=== PATIENT | female | born 1950 | race Caucasian/White ===

== ENCOUNTER 2024-04-11 08:30 | Outpatient (AMB) | payer MEDICARE, SELFPAY ==
[2024-04-11 09:12] VITALS: BP 153/80; PULSE 57; RESP 16; TEMP 36.2; O2SAT 96; BMI 33.3
--- NOTE | 2024-04-11 09:12 | RHCORTHONT_ITS ---
Vital signs 04/11/24 09:12 Height 1.52 m Height Method Stated Weight 77.252 kg Weight Measurement Method Standing Scale BMI 33.3 BP 153/80 H Blood Pressure Source Automatic Cuff Blood Pressure Location Right Upper Arm Position Sitting Respiration 16 Pulse 57 L Pulse Source Monitor Temp 97.1 F Temp Source Temporal Artery Scan Pulse Oximetry (%) 96 Oxygen Delivery Method Room Air Med/Allergies Allergies & Medications Allergies Penicillins Allergy (Verified 04/11/24 09:13) Medication Reconciliation diclofenac sodium 1 % topical gel (Aleve (diclofenac)) 2 g topical QID 04/11/24 [History Confirmed 04/11/24] ibuprofen 200 mg tablet (Advil) 200 mg PO Q6H PRN 04/11/24 [History Confirmed 04/11/24] Exam Exam Patient is in no acute distress and is cooperative with the examination today. Breathing is nonlabored. In no respiratory distress. Patient has no paraspinal tenderness. Spinal deformity [cannot] be appreciated. The gait of the patient is [nonantalgic] Bilateral extremities were evaluated and demonstrates sensation intact to light touch. Palpable pedal pulses are present. No significant edema is present. Bilateral knees were examined and the patient has full strength and range of motion.. The left hip was examined. Patient was able to flex to 90 degrees, adduct to 30 degrees, abduct to 40 degrees, internally rotate to 20 degrees, and externally rotate to 20 degrees. Patient has a negative logroll. Stinchfield is negative. The patient is nontender diffusely to touch. The right hip was examined. Patient was able to flex to [90] degrees, adduct to [30] degrees, abduct to [40] degrees, internally rotate to 10 degrees, and externally rotate to [20] degrees. Patient has a positive logroll and positive S tinchfield's An x-ray report says there is severe arthritis. I cannot see the x-rays Assessment and Plan Problem List (1) Arthritis of right hip: Status: Acute Plan: Patient is a 74-year-old female with right hip pain and right hip arthritis. She reports she has left hip pain that is mild. She is using a walker and is hunched over a little bit. I would like to get back x-rays as well as lumbar spine x-rays. I am very confident that the pain is from the hip. We will see her x-rays and go from there. 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 (6137-0123) MA Intake Visit Data Collection New Patient or Established: New Patient (never been to [facility]) Reason for Visit:: RT HIP PAIN Seen by Clinical Staff ONLY (RN/MA): No Quality Assurance Engineer Required: Yes PCP or OBGYN visit in last 3 months: Yes Hx Now: No Do You Feel Safe at Home: Yes Questionairres Past Medical History Past Medical History Have you ever been diagnosed with any of the following: Respiratory Problems Smoking: No Smoking Cessation Counseling: No Smoking Exposure: No Subjective Visit Visit for: new patient and hip Immunization / Flu Flu Vaccine in the Last 12 Months: No Flu Vaccine Exclusion Criteria: Refused by Patient History of Present Illness Chief complaint: RIGHT HIP PAIN Date of injury / onset of symptoms: 3 YEARS Patient is a 74-year-old female with right hip pain has been ongoing for 3 years. She has been using a walker for 1 year. She has tried diclofenac and Advil. The pain is affecting her quality life and happiness. She reports all the pain is in the groin. Personal History Occupation: RETIRED Pain Pain level (0-10): 6 Pain duration: CONSTANT Pain location: inside (medial), outside (lateral), anterior and posterior Pain quality: aching Pain timing: increases with activity Associated signs & symptoms: none Ambulatory data Ambulatory device: walker Walking distance (minutes): 2 Treatments Improvement with NSAIDS: yes Review of Systems Review of Systems: All systems negative unless otherwise noted in HPI.
== END 2024-04-11 09:35 | disposition home or self-care (01) ==
PROVIDERS: PCP Family Medicine; Referring Provider Family Medicine; Supervising Provider Orthopaedic Surgery Adult Reconstructive Orthopaedic Surgery; Visit Provider Orthopaedic Surgery Adult Reconstructive Orthopaedic Surgery
DX: M16.11 Unilateral primary osteoarthritis, right hip (principal); M25.551 Pain in right hip; M25.552 Pain in left hip
CPT/HCPCS: 99203; G0463

== ENCOUNTER → 2024-04-11 | Outpatient (CLI) | payer MEDICARE, MEDICAID, SELFPAY ==
--- NOTE | 2024-04-11 09:55 | XR_ITS ---
Examination: Lumbar spine 3 views Technique one AP lateral coned lateral lower lumbar spine 3 views Exam date and time: April 11, 2024 1040 hours INDICATIONS: Low back pain months FINDINGS: Grade 1 anterolisthesis L4 on L5 Grade 1 probable spondylolisthesis L5 on S1 No lumbar fracture Moderate disc narrowing L4-L5, L5-S1 Mild lumbar spondylosis IMPRESSION: Grade 1 anterolisthesis L4 on L5 Grade 1 probable spondylolisthesis L5 on S1 Moderate degenerative disc disease L4-L5, L5-S1
--- NOTE | 2024-04-11 09:55 | XR_ITS ---
Examination: Bilateral hips, AP pelvis, 5 views Technique: AP, lateral views both hips, AP pelvis, 5 views Exam date and time: April 11, 2024 1016 hours INDICATIONS: Bilateral hip pain months FINDINGS: Advanced right hip osteoarthritis Significant avascular necrosis right femoral head Moderate to advanced narrowing left hip joint Prominent osteopenia No hip or pelvic fracture IMPRESSION: Advanced right hip osteoarthritis Avascular necrosis right femoral head
== END | disposition home or self-care (01) ==
PROVIDERS: PCP Family Medicine; Referring Provider Orthopaedic Surgery Adult Reconstructive Orthopaedic Surgery; Visit Provider Orthopaedic Surgery Adult Reconstructive Orthopaedic Surgery
DX: M16.11 Unilateral primary osteoarthritis, right hip (principal); M87.851 Other osteonecrosis, right femur; M51.369 Other intervertebral disc degeneration, lumbar region without mention of lumbar back pain or lower extremity pain; M51.379 Other intervertebral disc degeneration, lumbosacral region without mention of lumbar back pain or lower extremity pain
CPT/HCPCS: 72100; 73523

== ENCOUNTER 2024-04-18 11:16 | Outpatient (AMB) | payer MEDICARE, SELFPAY ==
--- NOTE | 2024-04-18 11:51 | PD.ORTHCLVIS ---
Vital signs 04/18/24 11:52 Height 1.52 m Height Method Stated Weight 79.067 kg Weight Measurement Method Standing Scale BMI 34.0 BP 133/77 H Blood Pressure Source Automatic Cuff Blood Pressure Location Left Upper Arm Position Sitting Respiration 16 Pulse 60 Pulse Source Monitor Temp 97.3 F Temp Source Temporal Artery Scan Pulse Oximetry (%) 95 Oxygen Delivery Method Room Air Med/Allergies Allergies & Medications Allergies Penicillins Allergy (Verified 04/18/24 11:52) Medication Reconciliation diclofenac sodium 1 % topical gel (Aleve (diclofenac)) 2 g topical QID 04/11/24 [History Confirmed 04/18/24] ibuprofen 200 mg tablet (Advil) 200 mg PO Q6H PRN 04/11/24 [History Confirmed 04/18/24] Exam Exam Patient is in no acute distress and is cooperative with the examination today. Breathing is nonlabored. In no respiratory distress. Patient has no paraspinal tenderness. Spinal deformity [cannot] be appreciated. The gait of the patient is [nonantalgic] Bilateral extremities were evaluated and demonstrates sensation intact to light touch. Palpable pedal pulses are present. No significant edema is present. Bilateral knees were examined and the patient has full strength and range of motion.. The left hip was examined. Patient was able to flex to 90 degrees, adduct to 30 degrees, abduct to 40 degrees, internally rotate to 20 degrees, and externally rotate to 20 degrees. Patient has a negative logroll. Stinchfield is negative. The patient is nontender diffusely to touch. The right hip was examined. Patient was able to flex to [90] degrees, adduct to [30] degrees, abduct to [40] degrees, internally rotate to 10 degrees, and externally rotate to [20] degrees. Patient has a positive logroll and positive Stinchfield's Right hip x-rays demonstrate significant joint space narrowing and obliteration of the right hip. She also has a L5-S1 spondee. Assessment and Plan Problem List (1) Arthritis of right hip: Status: Acute Plan: Patient is a 74-year-old female with right hip pain as well as a L5-S1 spondee. We will start with a cortisone injection of the right hip for both diagnostic and therapeutic purposes. On exam, she feels like the pain is from the hip as she has pain with logroll. I would like to get a cortisone injection to make sure. I will see her back in approximately 4 weeks after cortisone injection of the hip. Advanced Care Planning Discussion Advance care planning discussed with:: patient Office Procedures GNS Level of Care Nursing/Assessment Patient Status: Established Patient Nursing Assessment/Reassesment: Medication Reconciliation, Update PMH in EMR and Vital Signs Coordination of Care: Complex Care and Chronic Disease 1-5, Education Complex Pt/Fam, 1 Ins Authorization and Staff clarify orders Special Needs: Language special needs Established Patient Charge Established Patient Point Assignment: 100 Established Patient Point Charge: EP Level 3 (80-115) MA Intake Visit Data Collection New Patient or Established: Established Patient (seen at [facility] within 3 years) Reason for Visit:: XRAY RESULTS/HIP PAIN Seen by Clinical Staff ONLY (RN/MA): No Partition Notcher Required: Yes PCP or OBGYN visit in last 3 months: Yes Do You Feel Safe at Home: Yes Questionairres Past Medical History Past Medical History Have you ever been diagnosed with any of the following: Respiratory Problems Smoking: No Smoking Cessation Counseling: No Smoking Exposure: No Subjective Visit Visit for: follow up visit and hip Immunization / Flu Flu Vaccine in the Last 12 Months: No Flu Vaccine Exclusion Criteria: Refused by Patient History of Present Illness Chief complaint: XRAY RESULTS/HIP PAIN Pain Pain level (0-10): 7 Pain duration: CONSTANT Pain location: inside (medial) and outside (lateral) Pain quality: aching Pain timing: increases with activity Ambulatory data Ambulatory device: walker Review of Systems Review of Systems: All systems negative unless otherwise noted in HPI.
[2024-04-18 11:52] VITALS: BP 133/77; PULSE 60; RESP 16; TEMP 36.3; O2SAT 95; BMI 34.0
== END 2024-04-18 12:09 | disposition home or self-care (01) ==
PROVIDERS: PCP Family Medicine; Referring Provider Family Medicine; Supervising Provider Orthopaedic Surgery Adult Reconstructive Orthopaedic Surgery; Visit Provider Orthopaedic Surgery Adult Reconstructive Orthopaedic Surgery
DX: M16.11 Unilateral primary osteoarthritis, right hip (principal); M25.551 Pain in right hip
CPT/HCPCS: 99213; G0463

== ENCOUNTER → 2024-05-19 | Outpatient (CLI) | payer MEDICARE, MEDICAID, SELFPAY ==
--- NOTE | 2024-05-19 13:00 | XR_ITS ---
Examination: Steroid injection right hip with imaging guidance Fluoroscopy AP right hip single view INDICATIONS: Right hip osteoarthritis right hip pain years. Exam date and time: May 19, 2024 1253 hours Informed consent provided. Technique: A timeout was completed verifying correct patient, procedure, site, positioning. The patient was placed in supine position appropriate for the steroid injection The patient's site was prepped and draped in sterile fashion 5 cc 1% lidocaine administered locally for anesthesia. Sterile drape applied, maximum barrier sterile technique. Utilizing fluoroscopic guidance, 23-gauge needle placed in the right hip joint 1 cc Kenalog 40 in 5 cc 0.25% Marcaine introduced into the right hip joint The patient was in satisfactory and stable condition on completion of the procedure Attending radiologist was present for the entire procedure Estimated blood loss 0 cc. Impression: Successful steroid injection right hip joint with imaging guidance Fluoroscopy 0.1 minute radiation dose 1.738 milligray 1 spot fluoroscopic AP right hip film .
== END | disposition home or self-care (01) ==
LOC: SIRX 12:39
PROVIDERS: PCP Family Medicine; Referring Provider Orthopaedic Surgery Adult Reconstructive Orthopaedic Surgery; Visit Provider Orthopaedic Surgery Adult Reconstructive Orthopaedic Surgery
DX: M16.11 Unilateral primary osteoarthritis, right hip (principal)
CPT/HCPCS: 20610; 77002

== ENCOUNTER 2024-06-05 09:57 | Outpatient (AMB) | payer MEDICARE, MEDICAID, SELFPAY ==
[2024-06-05 10:30] VITALS: BP 141/61; PULSE 65; RESP 18; TEMP 36; O2SAT 96; BMI 34.4
--- NOTE | 2024-06-05 10:30 | ORTHONT_ITS ---
Vital signs 06/05/24 10:30 Height 1.52 m Height Method Stated Weight 79.492 kg Weight Measurement Method Standing Scale BMI 34.4 BP 141/61 H Blood Pressure Source Automatic Cuff Blood Pressure Location Right Upper Arm Position Sitting Respiration 18 Pulse 65 Pulse Source Monitor Temp 96.8 F Temp Source Temporal Artery Scan Pulse Oximetry (%) 96 Oxygen Delivery Method Room Air Med/Allergies Allergies & Medications Allergies Penicillins Allergy (Verified 06/05/24 10:31) Medication Reconciliation diclofenac sodium 1 % topical gel (Aleve (diclofenac)) 2 g topical QID 04/11/24 [History Confirmed 06/05/24] ibuprofen 200 mg tablet (Advil) 200 mg PO Q6H PRN 04/11/24 [History Confirmed 06/05/24] Exam Exam Patient is in no acute distress and is cooperative with the examination today. Breathing is nonlabored. In no respiratory distress. Patient has no paraspinal tenderness. Spinal deformity [cannot] be appreciated. The gait of the patient is [nonantalgic] Bilateral extremities were evaluated and demonstrates sensation intact to light touch. Palpable pedal pulses are present. No significant edema is present. Bilateral knees were examined and the patient has full strength and range of motion.. The left hip was examined. Patient was able to flex to 90 degrees, adduct to 30 degrees, abduct to 40 degrees, internally rotate to 20 degrees, and externally rotate to 20 degrees. Patient has a negative logroll. Stinchfield is negative. The patient is nontender diffusely to touch. The right hip was examined. Patient was able to flex to [90] degrees, adduct to [30] degrees, abduct to [40] degrees, internally rotate to 10 degrees, and externally rotate to [20] degrees. Patient has a positive logroll and positive Stinchfield's Right hip x-rays demonstrate significant joint space narrowing and obliteration of the right hip. She also has a L5-S1 spony Assessment and Plan Problem List (1) Arthritis of right hip: Status: Acute Plan: Patient is a 74-year-old female with right hip pain as well as a L5-S1 spondylisthesis. She had great relief with the right hip injection. We are thus fairly certain the hip is the primary cause of the pain. We will thus discussed total Hip replacement when the pain returns. We also recommended weight loss to reduce her risk of complications Advanced Care Planning Discussion Advance care planning discussed with:: patient Office Procedures GNS Level of Care Nursing/Assessment Patient Status: Established Patient Nursing Assessment/Reassesment: Medication Reconciliation, Update PMH in EMR and Vital Signs Coordination of Care: Complex Care and Chronic Disease 1-5, Education Complex Pt/Fam, Consent,records obtained, informed consent, Results/Orders obtained and Staff clarify orders Special Needs: Language special needs Established Patient Charge Established Patient Point Assignment: 95 Established Patient Point Charge: EP Level 3 (80-115) MA Intake Visit Data Collection New Patient or Established: Established Patient (seen at [facility] within 3 years) Reason for Visit:: XRAY RESULTS/HIP PAIN Seen by Clinical Staff ONLY (RN/MA): No Verbal consent obtained for Telemed visit?: No Real Estate Executive Assistant Required: Yes PCP or OBGYN visit in last 3 months: Yes Hx Now: No Do You Feel Safe at Home: Yes Authorities Contacted: N/A Questionairres Past Medical History Past Medical History Have you ever been diagnosed with any of the following: Respiratory Problems Smoking: No Smoking Cessation Counseling: No Smoking Exposure: No Subjective Visit Visit for: follow up visit and hip Immunization / Flu Flu Vaccine in the Last 12 Months: No Flu Vaccine Exclusion Criteria: Refused by Patient and No Exclusion Criteria History of Present Illness Chief complaint: XRAY RESULTS/HIP PAIN Patient is a Pain Pain level (0-10): 7 Pain duration: CONSTANT Pain location: inside (medial), outside (lateral) and anterior Pain quality: dull and aching Pain timing: increases with activity Ambulatory data Ambulatory device: walker Treatments Improvement with previous injections: No Improvement with PT: No Improvement with NSAIDS: no Review of Systems Review of Systems: All systems negative unless otherwise noted in HPI.
== END 2024-06-05 10:52 | disposition home or self-care (01) ==
LOC: HODSRG 09:57
PROVIDERS: Supervising Provider Orthopaedic Surgery Adult Reconstructive Orthopaedic Surgery; Visit Provider Orthopaedic Surgery Adult Reconstructive Orthopaedic Surgery
DX: M16.11 Unilateral primary osteoarthritis, right hip (principal); M25.551 Pain in right hip; M43.17 Spondylolisthesis, lumbosacral region
CPT/HCPCS: 99213; G0463

== ENCOUNTER 2024-08-14 09:16 | Outpatient (AMB) | payer MEDICARE, MEDICAID, SELFPAY ==
[2024-08-14 10:14] VITALS: BP 159/84; PULSE 57; RESP 19; TEMP 37.2; O2SAT 97; BMI 35.3
--- NOTE | 2024-08-14 10:14 | PD.ORTHCLVIS ---
Vital signs 08/14/24 10:14 Height 1.52 m Height Method Stated Weight 81.675 kg Weight Measurement Method Standing Scale BMI 35.3 BP 159/84 H Blood Pressure Source Automatic Cuff Blood Pressure Location Right Upper Arm Position Sitting Respiration 19 Pulse 57 L Pulse Source Monitor Temp 98.9 F Temp Source Temporal Artery Scan Pulse Oximetry (%) 97 Oxygen Delivery Method Room Air Med/Allergies Allergies & Medications Allergies Penicillins Allergy (Verified 08/14/24 10:15) Medication Reconciliation diclofenac sodium 1 % topical gel (Aleve (diclofenac)) 2 g topical QID 04/11/24 [History Confirmed 08/14/24] ibuprofen 200 mg tablet (Advil) 200 mg PO Q6H PRN 04/11/24 [History Confirmed 08/14/24] Exam Exam Patient is in no acute distress and is cooperative with the examination today. Breathing is nonlabored. In no respiratory distress. Patient has no paraspinal tenderness. Spinal deformity [cannot] be appreciated. The gait of the patient is [nonantalgic] Bilateral extremities were evaluated and demonstrates sensation intact to light touch. Palpable pedal pulses are present. No significant edema is present. Bilateral knees were examined and the patient has full strength and range of motion.. The left hip was examined. Patient was able to flex to 90 degrees, adduct to 30 degrees, abduct to 40 degrees, internally rotate to 20 degrees, and externally rotate to 20 degrees. Patient has a negative logroll. Stinchfield is negative. The patient is nontender diffusely to touch. The right hip was examined. Patient was able to flex to [90] degrees, adduct to [30] degrees, abduct to [40] degrees, internally rotate to 10 degrees, and externally rotate to [20] degrees. Patient has a positive logroll and positive Stinchfield's Right hip x-rays demonstrate significant joint space narrowing and obliteration of the right hip. She also has a L5-S1 spony Assessment and Plan Problem List (1) Arthritis of right hip: Status: Acute Plan: Patient is a 74-year-old female with right hip pain as well as a L5-S1 spondylisthesis. She had great relief with the right hip injection. We are thus fairly certain the hip is the primary cause of the pain. We thus discussed total hip replacement is a reasonable option. She will still need a medical clearance The nature and purpose of the total knee replacement, alternative method(s) of treatment, the material risks involved, and the possibility of complications were fully explained to the patient. The patient does NOT have any of the following contraindications to TKA: - Active infection of the knee joint, OR - Active systemic bacteremia, OR - Active skin infection or open wound at surgical site, OR - Neuropathic arthritis, OR - Severe, rapidly progressive neurological disease, OR - Severe medical condition that makes risks of surgery outweigh the potential benefit The patient was told the most common risks and complications associated with a total knee replacement include, but are not limited to: blood clots in the leg, fatal pulmonary embolism, dislocation of the prosthesis, intraoperative and postoperative fractures of the femur or tibia, infection, failure of the prosthesis or grafting materials, complications from anesthesia, reactions to blood transfusions, postoperative leg length inequality, instability of the knee replacement, nerve damage or injury, vascular injury, delayed wound healing, infection, other injury or even . In addition, there are risks associated with anesthesia given during this operation. Also, the patient was told that after undergoing a total knee replacement there may still be persistent pain or disability. The patient was informed that the success of this operation in part depends upon the mechanical devices which are going to be implanted and that these devices can fail or malfunction, and may need to be repaired or replaced and there are no guarantees as to the longevity of this device or its parts and that it or its parts could fail prematurely. The patient was also notified that during the course of surgery, there may be a need to use bone graft from donors, and that any bone graft used will be carefully screened for communicable diseases, including AIDS, hepatitis, Tyree-Creutzfeldt, or other diseases, but despite the screening procedures, there is a small chance that they could contract one of these diseases. Finally, the patient was asked to follow completely and fully with all advice and recommended treatments, and that recovery and ultimate outcome are affected by their compliance with recommended treatment. We discussed the risks, benefits and treatment alternatives, and the patient is interested in proceeding with surgery. We will try to set this up as expeditiously as possible. Advanced Care Planning Discussion Advance care planning discussed with:: patient and child Office Procedures GNS Level of Care Nursing/Assessment Patient Status: Established Patient Nursing Assessment/Reassesment: Medication Reconciliation, Update PMH in EMR and Vital Signs Coordination of Care: Complex Care and Chronic Disease 1-5, Education Complex Pt/Fam, Consent,records obtained, informed consent, 2-3 Insurance Autorizations needed, Results/Orders obtained and Staff clarify orders Special Needs: Language special needs Established Patient Charge Established Patient Point Assignment: 115 Established Patient Point Charge: EP Level 3 (80-115) MA Intake Visit Data Collection New Patient or Established: Established Patient (seen at [facility] within 3 years) Reason for Visit:: PRE-OP Seen by Clinical Staff ONLY (RN/MA): No Verbal consent obtained for Telemed visit?: No Assistant 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 She was found to have significant right hip arthritis and had a prior hip injection as well as anti-inflammatories. The pain did go away for quite a while. She is using a walker because of the pain. Personal History Occupation: DISABLED Red flag PMH: BMI BMI Counceling provided: Yes Pain Pain level (0-10): 5 Pain duration: ALL DAY Pain location: anterior and posterior Pain quality: sharp, dull and aching Pain timing: increases with activity Ambulatory data Ambulatory device: walker Treatments Improvement with previous injections: No Improvement with PT: No Improvement with NSAIDS: no Review of Systems Review of Systems: All systems negative unless otherwise noted in HPI.
== END 2024-08-14 10:39 | disposition home or self-care (01) ==
PROVIDERS: PCP Family Medicine; Referring Provider Family Medicine; Supervising Provider Orthopaedic Surgery Adult Reconstructive Orthopaedic Surgery; Visit Provider Orthopaedic Surgery Adult Reconstructive Orthopaedic Surgery
DX: M16.11 Unilateral primary osteoarthritis, right hip (principal); M25.551 Pain in right hip; M46.87 Other specified inflammatory spondylopathies, lumbosacral region
CPT/HCPCS: 99213; G0463

== ENCOUNTER → 2024-09-02 | Outpatient (CLI) | payer MEDICARE, MEDICAID, SELFPAY ==
--- NOTE | 2024-09-02 | XR_ITS ---
Examination: CT bilateral lower extremities, without contrast. 2-D sagittal reconstructions. 2-D coronal reconstructions. 3-D reconstructions. Date and time of exam:September 02, 2024 1325 hours INDICATIONS: Diagnosis right hip unilateral osteoarthritis 5 years hip pain CTDI: vol (mGy):17 DLP: (mGycm):988 Technique: Multiple 1.25 mm axial sections of the bilateral lower extremities without intravenous contrast have been obtained. 2-D sagittal and coronal reconstructions have been obtained. 3-D reconstructions have been obtained. Low dose protocols were performed. One or more of the following dose reduction techniques were used; automated exposure control, adjustment of the mA and/or KV according to patient size, use of iterative reconstruction technique. Findings: Severe osteopenia Severe right hip osteoarthritis severe narrowing with subarticular cyst formation Moderate to advanced narrowing left hip joint Moderate narrowing medial joint spaces right and left knee Moderate narrowing patellofemoral joints No fractures No patellar dislocations IMPRESSION: Severe right hip osteoarthritis
== END | disposition home or self-care (01) ==
PROVIDERS: PCP Orthopaedic Surgery Adult Reconstructive Orthopaedic Surgery; Referring Provider Orthopaedic Surgery Adult Reconstructive Orthopaedic Surgery; Visit Provider Orthopaedic Surgery Adult Reconstructive Orthopaedic Surgery
DX: M16.11 Unilateral primary osteoarthritis, right hip (principal)
CPT/HCPCS: 72192; 73700

== ENCOUNTER 2024-09-10 15:01 | Observation (INO) | payer MEDICARE, MEDICAID, SELFPAY ==
[2024-09-09 09:09] VITALS: BMI 37.1
[2024-09-09 10:37] LABS: Basophils % (Auto) 1 % (0-2.5); Eosinophils # (Auto) 0.1 Thou/mm3 (0.0-0.5); Eosinophils % (Auto) 1 % (0-10); Hematocrit 43.8 % (36.0-46.0); Hemoglobin 14.2 g/dL (12.0-16.0); Immature Granulocytes % (Auto) 0 % (0-0); Immature Granulocytes Auto 0.02 Thou/mm3 (0.00-0.00); Lymphocytes # (Auto) 1.9 Thou/mm3 (1.0-4.8); Lymphocytes % (Auto) 35 % (10-50); Mean Corpuscular HGB Conc 32.4 g/dl (31.0-37.0); Mean Corpuscular Hemoglobin 26.7 pg (25.0-35.0); Mean Corpuscular Volume 82 fL (80-100); Monocytes # (Auto) 0.6 Thou/mm3 (0.0-0.8); Monocytes % (Auto) 10 % (0-12); Neutrophils # (Auto) 2.8 Thou/mm3 (1.8-7.7); Neutrophils % (Auto) 52 % (37-80); Nucleated Red Blood Cell % 0 /100 WBC (0); Platelet Count 283 Thou/mm3 (140-440); RDW Standard Deviation 42.5 fL (36.4-46.3); Red Blood Count 5.32 Miln/mm3 (4.00-5.20); White Blood Count 5.3 Thou/mm3 (3.6-11.0)
[2024-09-09 10:47] LABS: Partial Thromboplastin Time 27.7 Seconds (22.0-36.0); Prothrombin Time 11.1 Seconds (9.0-12.2)
[2024-09-09 10:52] LABS: Alanine Aminotransferase 18 U/L (10-49); Albumin, Serum 4.3 gm/dL (3.4-4.8); Albumin/Globulin Ratio 1.5 (1.2-2.2); Alkaline Phosphatase 98 U/L (46-116); Anion Gap 9 (7-16); Aspartate Amino Transferase 26 U/L (0-34); BUN/Creatinine Ratio 15 Ratio (12-20); Bilirubin,Total 1.4 mg/dL (0.3-1.2); Blood Urea Nitrogen 16 mg/dL (9-23); Calcium 9.3 mg/dL (8.3-10.6); Calcium (Corrected) 9.3 mg/dL (8.5-10.1); Carbon Dioxide 26.7 mMol/L (20.0-31.0); Chloride 107 mMol/L (98-107); Creatinine (Component) 1.1 mg/dL (0.6-1.3); Estimated Creatinine Clearance 40.2 mL/min (>60); Globulin 2.8 gm/dL (2.3-3.5); Glucose 119 mg/dL (74-106); Osmolality,Calculated 287 (275-295); Potassium 4.4 mMol/L (3.4-5.1); Sodium 143 mMol/L (136-145); Total Protein 7.1 gm/dL (5.7-8.2); eGFR 53 See Note
[2024-09-10] VITALS (9 sets, daily range): BP systolic 122–168; BP diastolic 61–86; PULSE 53–77; RESP 12–20; TEMP 36.2–36.6; O2SAT 95–99; BMI 37.8
[2024-09-10] MEDS: PREGABALIN 75 MG CAPSULE PO (08:23)
[2024-09-10] MEDS: MELOXICAM 7.5 MG TABLET PO ×2 (08:23→21:20)
[2024-09-10] MEDS: ACETAMINOPHEN 325 MG TABLET 650 MG PO (08:23)
--- NOTE | 2024-09-10 10:40 | CHAP ---
Prayed with patient about her upcoming procedure.
--- NOTE | 2024-09-10 11:30 | XR_ITS ---
Examination: Right hip AP 2 views Technique one AP right hip 2 views Date and time: September 10, 2024 1435 hours INDICATIONS: Total right hip replacement today FINDINGS: Total right hip arthroplasty. Satisfactory alignment IMPRESSION: Total right hip arthroplasty with satisfactory alignment
--- NOTE | 2024-09-10 13:49 | SUR.OPER ---
KALYN total hip tray contaminated upon opening. Case delay while the instruments were flash sterilized following approval from Dr. Downey and director of health care marketing, Mary.
--- NOTE | 2024-09-10 14:56 | ESOP_ITS ---
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 year-old with a longstanding history of right hip pain. After considering the patient's condition and the impact of their hip injury on the patient's quality of life and risks of nonoperative treatment, total hip replacement was offered as a reasonable option. Prior to the surgery I discussed the nature of the hip replacement surgery including alternatives to surgery and the purpose of, and indications for proceeding with surgery. I discussed that this surgery is a shared decision between the patient and the surgeon. Risks and benefits and alternatives of the procedure have been explained to the patient and their family. Anesthesia complications and risks include but are not limited to stroke, heart attack, and . The surgical risks include but are not limited to infection, instability/dislocation, bleeding, nerve and blood vessel injury, deep vein thrombosis, pulmonary embolus, stiffness, pain, scar, need for reoperation, leg length discrepancy, thigh numbness, weakness, and mechanical failure of the implant including loosening, metal complications, metal allergy, wear or breakage. I discussed the expected recovery from surgery and the importance of compliance with all our pre and post-operative recommendations in order to maximize the recovery. The patient/family understands the risks of loss of life, loss of limb and, loss of function and wishes to proceed. They understand they are at increased risk for infection given their history of smoking. A signed and witnessed consent was obtained and placed in the chart. Patient Positioning: The patient was placed in the lateral decubitus position on a standard table using a pegboard. An axillary role was placed. All extremities were padded to ensure adequate protection. A moses catheter was aseptically inserted. Time Out: A timeout was performed prior to the procedure which verified the correct patient, positioning, operation to be performed, operative site, antibiotics, allergies, imaging, and any other concerns. All parties were in agreement. Procedure in detail: The operative site was cleaned and draped in the usual sterile fashion. A final timeout was performed with all parties in agreement. We first placed percutaneous perico pins above the ASIS and attached a hip array. A modified anterolateral approach to the hip was utilized. A 16cm skin incision was made centered over the greater trochanter in line with the femur. This was taken down through skin and subcutaneous tissue using a 10 blade. Bleeding was controlled using electrocautery. The fascia was identified and split in line with the femur. The charnley retractor was then placed. The abductor insertion was identified and a split made in the anterior 1/3 of the tendon proximally. Retractors were placed and the gluteus minimus was visualized. A capsulotomy was made down to the femoral neck anterior to the minimus. A split was then made in the anterior 1/3 of the vastus lateralis. A retractor was then placed anterior to the femoral shaft, the tendon was tagged with #1 ethibond sutures and a U- shaped split was made in the anterior 1/3 of the abductor tendon being careful to leave enough tendon to re-attach. The hip was then gently externally rotated as the anterior tissues were taken d own with the tendon and capsule as one sleeve. Once the anterior tissue had been release off of bone a bone hook was placed and the hip was gently dislocated. Retractors were placed around the femoral neck and the femoral neck osteotomy was then made to freshen up the cut. The femoral head removed. The leg was then placed in extension and retractors were placed anterior and posterior to the acetabulum. We first mapped the acetabulum and pelvis with a probe. The inferior capsule was release to improved visualization and the labrum and osteophytes around the acetabulum were removed. The acetabulum was then reamed to bleeding bone with adequate wall coverage and the cup was impacted into place using the Interneer robot. Screws were then placed followed by the liner which was impacted and confirmed to be seated. We then turned our attention to the femur. The leg was brought into external rotation and the femur was exposed. A canal finder was used followed by a box osteotomy and the femur was broached sequentially. The trial stem was then left in and the hip was trialed using various neck offsets and head sizes until the appropriate size was found based on leg length, stability. Once we were satisfied with the construct a cross-table AP pelvis radiograph was obtained to confirm appropriate positioning and sizing. The hip was then dislocated and the trials were then removed and the final stem impacted into placed. The hip was then again trialed and the appropriate head size identified. The collins taper was then cleaned and dried and the final head impact into place and tested. The acetabulum was irrigated and confirmed to be free of debris. The hip was then reduced and taken through range of motion. The hip was stable in abduction and external rotation, adduction and external rotation, flexion past 90 degrees and internal rotation past 20 degrees. It did not sublux throughout range of motion and no impingement was detected. Leg lengths were appropriately restored based on preoperative leg lengths and intraoperative testing. Lengths and offset were further verified with the robot. We then removed the pins and the greater troch marker. The hip was then copiously irrigated with dilute betadine followed by normal saline. The hip was then injected with the cocktail per protocol The hip was the closed in layers. The abductor tendon was closed with #1 ethibond. The fascia was closed with 0 Vicryl followed by an 0 V-lock. . The deep layer was closed with 0-Vicryl and the subcutaneous layer by a 2-0 Vicryl. The subdermal layer was closed with a 3-0 monocryl. The skin was then cleaned and dried and steri- strips placed followed by a sterile dressing. The drapes were then taken down and the patient was placed supine. Leg lengths were confirmed to be appropriate and the patient's lower extremities were warm and well perfused with brisk capillary refill and palpable pulses. The patient was then awoken, transferred to the [facility] and taken to the PACU in stable condition. They tolerated the procedure well. The patient's family/caregiviers were made aware of their condition. Postoperative plan Activity: WBAT, no hip precautions , no active hip abduction DVT Prophylaxis: aspirin 81mg BID Antibiotics: Standard postoperative antibiotics x 24 hours Implants: Amrit 48 cup, 3HO insignia, 1 screws, standard liner, 36-5 head Anesthesia spinal Implants amrit Pathology / specimen None Pathology comment: none Estimated Blood Loss 150 Condition Stable Disposition same day Surgeon Xiang Downey MD Surgical Staff Operation Date: 09/10/24 11:00 Case Staff Anesthesiologist: Travis Luis RNauto suspension and steering mechanic: Erin Samaniego
--- NOTE | 2024-09-10 15:01 | XR_ITS ---
Examination:Right hip AP, lateral, AP pelvis 3 views Technique: Hip AP lateral, AP pelvis, 3 views Exam date and time:September 10, 2024 1603 hours INDICATIONS: Postop hip arthroplasty today FINDINGS: Total right hip arthroplasty. Satisfactory alignment Degenerative bones the pelvis intact IMPRESSION: Total right hip arthroplasty with satisfactory alignment.
--- NOTE | 2024-09-10 15:35 | SUR.PHASEI ---
Addendum entered by Anisa Headley RN 09/10/24 19:34: post spinal anesthesia assessment via ice-patient has dermatome sensation at L1-groin, will monitor Original Note: 2500 Patient arrived to recovery resting comfortably in bed, awake and alert with staff, breathing unlabored, vital signs stable, denies pain, dressing intact to right hip; prineo, telfa, abd, medipore tape, no bleeding noted, bilateral dorsalis pedis pulses present when palpated, patient has good circulation to right lower extremity, report received from Asmita BOB and Dr. Luis
--- NOTE | 2024-09-10 16:08 | SUR.PHASEI ---
Xray complete per MD order
--- NOTE | 2024-09-10 16:45 | SUR.PHASEII ---
1638 Report given to Hannah BOB, patient meets discharge criteria from recovery, awake and alert, breathing unlabored, vital signs stable, denies pain, dressing intact; no bleeding noted, patient ate a jello; tolerated well, patients daughter at bedside. 1645 Patient transported via bed to room 368 without incident.
[2024-09-10] MEDS: ACETAMINOPHEN 500 MG TABLET 1000 MG PO (19:06)
[2024-09-10] MEDS: ceFAZolin/D5W 2 GM IV 2 GM/100 ML BAG IV (21:20)
[2024-09-11] VITALS: BP 137/50; PULSE 69; RESP 18; TEMP 36.1; O2SAT 95
[2024-09-11] MEDS: ACETAMINOPHEN 500 MG TABLET 1000 MG PO ×3 (00:03→12:08)
[2024-09-11 01:58] VITALS: PULSE 71; RESP 18; RESP 96
[2024-09-11 04:00] VITALS: BP 116/51; PULSE 75; RESP 18; TEMP 36.7; O2SAT 95
[2024-09-11] MEDS: ceFAZolin/D5W 2 GM IV 2 GM/100 ML BAG IV (05:26)
[2024-09-11 07:24] VITALS: PULSE 60; RESP 18; RESP 96
[2024-09-11 08:00] VITALS: BP 138/85; PULSE 72; RESP 18; TEMP 36.2; O2SAT 96
[2024-09-11] MEDS: PANTOPRAZOLE INJ 40 MG VIAL IV (08:57)
[2024-09-11] MEDS: MULTIVITAMINS TABLET 1 TAB PO (08:57)
--- NOTE | 2024-09-11 09:21 | PC.SS ---
Initial assessment: patient is a 74 year old female her for surgery with Dr. Downey. Patient is Estonian speaking. Patient confirmed demographic information. Patient lives with her daughter, Roselyn and grandchild. Roselyn identified as her emergency contact. Patient reports she utilizes a cane and walker at home to assist with ambulation. Patient followed by Dave Mak for primary care. Patient pharmacy is [facility]. Patient to discharge home, daughter to assist with transportation home. No needs identified. Patient provided with community resource handout. D/c plan: Home Next of kin: Roselyn pearson
[2024-09-11] MEDS: oxyCODONE HCL 5 MG IR TAB PO (09:30)
[2024-09-11 12:00] VITALS: BP 130/75; PULSE 74; RESP 17; TEMP 37.1; O2SAT 94
[2024-09-11 13:35] VITALS: BMI 13.0
--- NOTE | 2024-09-11 14:56 | PD.ANESPROG ---
Documentation for date of: 09/11/24 POST ANESTHESIA NOTE: Patient had spinal anesthesia (without intrathecal Duramorph) and MAC for R JOHANNY yesterday. I saw her briefly earlier today in 368 and she was alert and calm in bed, NAD, head elevated, denied any problems from anesthesia, specifically denied post op headache and back pain, chest pain, PONV, and was thankful. Travis Luis MD Anesthesia Progress Note Progress Note Most recent Vital Signs: Last Vital Signs Temp 98.8 F 09/11/24 12:00 Pulse 74 09/11/24 12:00 Resp 17 09/11/24 12:00 BP 130/75 09/11/24 12:00 Pulse Ox 94 L 09/11/24 12:00 O2 Del Method Room Air 09/11/24 12:00
== END 2024-09-11 14:07 | disposition home or self-care (01) ==
LOC: S2EX 15:02 → S3SX 09-11 07:22
PROVIDERS: Anesthesiology; Admitting Provider Orthopaedic Surgery Adult Reconstructive Orthopaedic Surgery; PCP Family Medicine; Referring Provider Orthopaedic Surgery Adult Reconstructive Orthopaedic Surgery; Visit Provider Orthopaedic Surgery Adult Reconstructive Orthopaedic Surgery
PROC: (CPT 27130; principal; 2024-09-10 10:45)
DX: M87.051 Idiopathic aseptic necrosis of right femur (principal); M25.751 Osteophyte, right hip; Z96.641 Presence of right artificial hip joint
CPT/HCPCS: 27130; 20985; 36415; 73501; 73502; 80053; 85025; 85610; 85730; 87081; 96365; 96375; 97162; A4217; A4649; C1713; C1776; G0378; J0689; J0690; J1100; J2250; J2371; J2470; J2704; J2765; J3010; J3490; J7030; J7999; A9270

== ENCOUNTER 2024-09-26 10:32 | Outpatient (AMB) | payer MEDICARE, SELFPAY ==
[2024-09-26 11:18] VITALS: BP 136/70; PULSE 66; RESP 18; TEMP 36.4; O2SAT 95; BMI 37.3
--- NOTE | 2024-09-26 11:18 | PD.ORTHCLVIS ---
Vital signs 09/26/24 11:18 Height 1.47 m Height Method Stated Weight 80.513 kg Weight Measurement Method Standing Scale BMI 37.3 BP 136/70 H Blood Pressure Source Automatic Cuff Blood Pressure Location Right Upper Arm Position Sitting Respiration 18 Pulse 66 Pulse Source Monitor Temp 97.6 F Temp Source Temporal Artery Scan Pulse Oximetry (%) 95 Oxygen Delivery Method Room Air Med/Allergies Allergies & Medications Allergies Penicillins Allergy (Verified 09/26/24 11:19) Rash Medication Reconciliation multivitamin (Daily Multi-Vitamin tablet) 1 tab PO QAM 09/09/24 [History Confirmed 09/26/24] acetaminophen 500 mg tablet (Acetaminophen Extra Strength) 1,000 mg (2 x 500 mg) PO Q6H PRN pain #90 tabs 09/10/24 [Rx Confirmed 09/26/24] aspirin 81 mg tablet,delayed release 81 mg PO BID #60 tabs 09/10/24 [Rx Confirmed 09/26/24] doxycycline hyclate 100 mg tablet 100 mg PO BID #14 tabs 09/10/24 [Rx Confirmed 09/26/24] gabapentin 300 mg capsule 300 mg PO .qhs #30 caps 09/10/24 [Rx Confirmed 09/26/24] oxycodone 5 mg tablet 5 mg PO Q6H PRN pain #28 tabs 09/10/24 [Rx Confirmed 09/26/24] sennosides 8.6 mg-docusate sodium 50 mg tablet (Senna-S) 1 tab-cap PO QDAY #30 tabs 09/10/24 [Rx Confirmed 09/26/24] Exam Exam Patient is in no acute distress and is cooperative with the examination today. Breathing is nonlabored. In no respiratory distress. Patient has no paraspinal tenderness. Spinal deformity [cannot] be appreciated. The gait of the patient is [nonantalgic] Bilateral extremities were evaluated and demonstrates sensation intact to light touch. Palpable pedal pulses are present. No significant edema is present. Bilateral knees were examined and the patient has full strength and range of motion.. The left hip was examined. Patient was able to flex to 90 degrees, adduct to 30 degrees, abduct to 40 degrees, internally rotate to 20 degrees, and externally rotate to 20 degrees. Patient has a negative logroll. Stinchfield is negative. The patient is nontender diffusely to touch. Right hip incision is clean dry and intact. Leg lengths are slightly longer on the right. He is approximately half to 1 cn longer centimeter longer on the right Assessment and Plan Problem List (1) Arthritis of right hip: Status: Acute Plan: Patient is a 74-year-old female with right hip pain as well as a L5-S1 spondylisthesis. He is doing well status post right total hip replacement. We will see her in approximately 4 weeks for routine follow-up Advanced Care Planning Discussion Advance care planning discussed with:: patient and child Office Procedures GNS Level of Care Nursing/Assessment Patient Status: Established Patient Nursing Assessment/Reassesment: Medication Reconciliation, Update PMH in EMR and Vital Signs Coordination of Care: Complex Care and Chronic Disease 1-5, Education Complex Pt/Fam, Consent,records obtained, informed consent, Lab and Imaging orders, Results/Orders obtained and Staff clarify orders Special Needs: Language special needs Established Patient Charge Established Patient Point Assignment: 110 Established Patient Point Charge: EP Level 3 (80-115) MA Intake Visit Data Collection New Patient or Established: Established Patient (seen at [facility] within 3 years) Reason for Visit:: 2 WEEK POST OP JOHANNY Seen by Clinical Staff ONLY (RN/MA): No Verbal consent obtained for Telemed visit?: No Circuit Board Assembler Required: No PCP or OBGYN visit in last 3 months: Yes Hx Now: No Do You Feel Safe at Home: Yes Authorities Contacted: N/A Questionairres Past Medical History Past Medical History Have you ever been diagnosed with any of the following: Neurological Problems Seizures: No Cardiology Problems Congestive Heart Failure: No Edema: Yes (when weather is warm) Varicose Veins: Yes Respiratory Problems Chronic Obstructive Pulmonary Disease (COPD): No Smoking: No Smoking Cessation Counseling: No Smoking Exposure: No Stomache/Intestinal Problems Hepatitis: No Genital/Urinary Problems Renal Disease: No Reproductive Problems Previous Pregnancies: Yes Musculoskeletal Problems Arthritis: Yes Endocrine Problems Diabetes Mellitus Type 1: No Diabetes Mellitus Type 2: No Other Problems Hospitalization: No Shingles: No Blood Transfusions: Yes Blood Transfusion Reaction: No Anesthesia Reactions: No Measles: Yes Cancer: No Subjective Visit Visit for: post op #1 and hip Immunization / Flu Flu Vaccine in the Last 12 Months: No Flu Vaccine Exclusion Criteria: No Exclusion Criteria History of Present Illness Chief complaint: 2 WEEK POST OP JOHANNY Patient is a 74-year-old female with groin pain. She is doing well status post right total hip replacement. She reports the pain is well-controlled Personal History Occupation: RETIRED Red flag PMH: BMI BMI Counceling provided: Yes Pain Pain level (0-10): 3 Pain duration: COMES AND GOES Pain location: groin Pain quality: sharp, dull and aching Pain timing: increases with activity Associated signs & symptoms: none Ambulatory data Ambulatory device: walker Treatments Improvement with previous injections: No Improvement with PT: No Improvement with NSAIDS: no Review of Systems Review of Systems: All systems negative unless otherwise noted in HPI.
== END 2024-09-26 11:38 | disposition home or self-care (01) ==
PROVIDERS: PCP Family Medicine; Referring Provider Family Medicine; Supervising Provider Orthopaedic Surgery Adult Reconstructive Orthopaedic Surgery; Visit Provider Orthopaedic Surgery Adult Reconstructive Orthopaedic Surgery
DX: M16.11 Unilateral primary osteoarthritis, right hip (principal); M25.551 Pain in right hip; M46.87 Other specified inflammatory spondylopathies, lumbosacral region; Z96.641 Presence of right artificial hip joint
CPT/HCPCS: 99213; G0463

== ENCOUNTER 2024-10-28 08:37 | Outpatient (AMB) | payer MEDICARE, SELFPAY ==
[2024-10-28 08:45] VITALS: BP 144/78; PULSE 68; RESP 18; TEMP 35.1; O2SAT 98; BMI 37.8
--- NOTE | 2024-10-28 08:45 | ORTHONT_ITS ---
Vital signs 10/28/24 08:45 Height 1.47 m Height Method Stated Weight 81.732 kg Weight Measurement Method Standing Scale BMI 37.8 BP 144/78 H Blood Pressure Source Automatic Cuff Blood Pressure Location Right Upper Arm Position Sitting Respiration 18 Pulse 68 Pulse Source Monitor Temp 95.2 F L Temp Source Temporal Artery Scan Pulse Oximetry (%) 98 Oxygen Delivery Method Room Air Med/Allergies Allergies & Medications Allergies Penicillins Allergy (Verified 10/28/24 08:45) Rash Medication Reconciliation multivitamin (Daily Multi-Vitamin tablet) 1 tab PO QAM 09/09/24 [History Confirmed 10/28/24] Exam Exam Patient is in no acute distress and is cooperative with the examination today. Breathing is nonlabored. In no respiratory distress. Patient has no paraspinal tenderness. Spinal deformity [cannot] be appreciated. The gait of the patient is [nonantalgic] Bilateral extremities were evaluated and demonstrates sensation intact to light touch. Palpable pedal pulses are present. No significant edema is present. Bilateral knees were examined and the patient has full strength and range of motion.. The left hip was examined. Patient was able to flex to 90 degrees, adduct to 30 degrees, abduct to 40 degrees, internally rotate to 20 degrees, and externally rotate to 20 degrees. Patient has a negative logroll. Stinchfield is negative. The patient is nontender diffusely to touch. Right hip incision is clean dry and intact. Leg lengths are slightly longer on the right. He is approximately half to 1 cn longer centimeter longer on the right Assessment and Plan Problem List (1) Arthritis of right hip: Status: Acute Plan: Patient is a 74-year-old female with right hip pain as well as a L5-S1 spondylisthesis. He is doing well status post right total hip replacement. We will see her back in approximately 6 weeks Advanced Care Planning Discussion Advance care planning discussed with:: patient and child Office Procedures GNS Level of Care Nursing/Assessment Patient Status: Established Patient Nursing Assessment/Reassesment: Medication Reconciliation, Update PMH in EMR and Vital Signs Coordination of Care: Complex Care and Chronic Disease 1-5, Education Complex Pt/Fam, Consent,records obtained, informed consent, Lab and Imaging orders, Results/Orders obtained and Staff clarify orders Special Needs: Language special needs Established Patient Charge Established Patient Point Assignment: 110 Established Patient Point Charge: EP Level 3 (80-115) MA Intake Visit Data Collection New Patient or Established: Established Patient (seen at [facility] within 3 years) Seen by Clinical Staff ONLY (RN/MA): No Verbal consent obtained for Telemed visit?: No Home Mission Worker Required: Yes PCP or OBGYN visit in last 3 months: Yes Hx Now: No Do You Feel Safe at Home: Yes Authorities Contacted: N/A Questionairres Past Medical History Past Medical History Have you ever been diagnosed with any of the following: Neurological Problems Seizures: No Cardiology Problems Congestive Heart Failure: No Edema: Yes (when weather is warm) Varicose Veins: Yes Respiratory Problems Chronic Obstructive Pulmonary Disease (COPD): No Smoking: No Smoking Cessation Counseling: No Smoking Exposure: No Stomache/Intestinal Problems Hepatitis: No Genital/Urinary Problems Renal Disease: No Reproductive Problems Previous Pregnancies: Yes Musculoskeletal Problems Arthritis: Yes Endocrine Problems Diabetes Mellitus Type 1: No Diabetes Mellitus Type 2: No Other Problems Hospitalization: No Shingles: No Blood Transfusions: Yes Blood Transfusion Reaction: No Anesthesia Reactions: No Measles: Yes Cancer: No Subjective Visit Visit for: post op #2 and knee Immunization / Flu Flu Vaccine in the Last 12 Months: No Flu Vaccine Exclusion Criteria: No Exclusion Criteria History of Present Illness Chief complaint: 6 WEEK POST OP TKA Patient is a 74-year-old female s/p R JOHANNY. She is doing well status post right total hip replacement. Personal History Occupation: DISABLED Red flag PMH: BMI BMI Counceling provided: Yes Pain Pain level (0-10): 0 Pain duration: COMES AND GOES Pain location: groin Pain quality: sharp, dull and aching Pain timing: increases with activity Associated signs & symptoms: none Ambulatory data Ambulatory device: cane Treatments Improvement with previous injections: No Improvement with PT: Yes Improvement with NSAIDS: no Review of Systems Review of Systems: All systems negative unless otherwise noted in HPI.
== END 2024-10-28 08:58 | disposition home or self-care (01) ==
LOC: HODSRG 08:37
PROVIDERS: PCP Family Medicine; Referring Provider Family Medicine; Supervising Provider Orthopaedic Surgery Adult Reconstructive Orthopaedic Surgery; Visit Provider Orthopaedic Surgery Adult Reconstructive Orthopaedic Surgery
DX: M16.11 Unilateral primary osteoarthritis, right hip (principal); M25.551 Pain in right hip; M46.87 Other specified inflammatory spondylopathies, lumbosacral region; Z96.641 Presence of right artificial hip joint
CPT/HCPCS: 99213; G0463

== ENCOUNTER 2025-01-22 08:29 | Outpatient (AMB) | payer MEDICARE, SELFPAY ==
--- NOTE | 2025-01-22 08:40 | PD.ORTHCLVIS ---
Vital signs 01/22/25 08:41 Height 1.47 m Height Method Stated Weight 81.788 kg Weight Measurement Method Standing Scale BMI 37.8 BP 142/79 H Blood Pressure Source Automatic Cuff Blood Pressure Location Left Upper Arm Position Sitting Respiration 19 Pulse 59 L Pulse Source Monitor Temp 97.1 F Temp Source Temporal Artery Scan Pulse Oximetry (%) 94 L Oxygen Delivery Method Room Air Med/Allergies Allergies & Medications Allergies Penicillins Allergy (Verified 01/22/25 08:42) Rash Medication Reconciliation multivitamin (Daily Multi-Vitamin tablet) 1 tab PO QAM 09/09/24 [History Confirmed 01/22/25] Exam Exam Patient is in no acute distress and is cooperative with the examination today. Breathing is nonlabored. In no respiratory distress. Patient has no paraspinal tenderness. Spinal deformity [cannot] be appreciated. The gait of the patient is [nonantalgic] Bilateral extremities were evaluated and demonstrates sensation intact to light touch. Palpable pedal pulses are present. No significant edema is present. Bilateral knees were examined and the patient has full strength and range of motion.. The left hip was examined. Patient was able to flex to 90 degrees, adduct to 30 degrees, abduct to 40 degrees, internally rotate to 20 degrees, and externally rotate to 20 degrees. Patient has a negative logroll. Stinchfield is negative. The patient is nontender diffusely to touch. Right hip incision is clean dry and intact. Leg lengths are slightly longer on the right. He is approximately half to 1 cn longer centimeter longer on the right Assessment and Plan Problem List (1) Arthritis of right hip: Status: Acute Plan: Patient is a 74-year-old female with right hip pain as well as a L5-S1 spondylisthesis. SHe is doing well status post right total hip replacement. We will see her back in approximately 6 months Advanced Care Planning Discussion Advance care planning discussed with:: patient and child Office Procedures GNS Level of Care Nursing/Assessment Patient Status: Established Patient Nursing Assessment/Reassesment: Medication Reconciliation, Update PMH in EMR and Vital Signs Coordination of Care: Complex Care and Chronic Disease 1-5, Education Complex Pt/Fam, Consent,records obtained, informed consent, Results/Orders obtained and Staff clarify orders Special Needs: Language special needs Established Patient Charge Established Patient Point Assignment: 95 Established Patient Point Charge: EP Level 3 (80-115) MA Intake Visit Data Collection New Patient or Established: Established Patient (seen at [facility] within 3 years) Reason for Visit:: 3MTH TKA FU Seen by Clinical Staff ONLY (RN/MA): No Verbal consent obtained for Telemed visit?: No [employer] Required: Yes PCP or OBGYN visit in last 3 months: Yes Hx Now: No Do You Feel Safe at Home: Yes Authorities Contacted: N/A Questionairres Past Medical History Past Medical History Have you ever been diagnosed with any of the following: Neurological Problems Seizures: No Cardiology Problems Congestive Heart Failure: No Edema: Yes (when weather is warm) Varicose Veins: Yes Respiratory Problems Chronic Obstructive Pulmonary Disease (COPD): No Smoking: No Smoking Cessation Counseling: No Smoking Exposure: No Stomache/Intestinal Problems Hepatitis: No Genital/Urinary Problems Renal Disease: No Reproductive Problems Previous Pregnancies: Yes Musculoskeletal Problems Arthritis: Yes Endocrine Problems Diabetes Mellitus Type 1: No Diabetes Mellitus Type 2: No Other Problems Hospitalization: No Shingles: No Blood Transfusions: Yes Blood Transfusion Reaction: No Anesthesia Reactions: No Measles: Yes Cancer: No Subjective Visit Visit for: follow up visit, post op #3 and knee Immunization / Flu Flu Vaccine in the Last 12 Months: No Flu Vaccine Exclusion Criteria: No Exclusion Criteria History of Present Illness Chief complaint: 6 WEEK POST OP TKA Patient is a 74-year-old female s/p R JOHANNY. She is doing well status post right total hip replacement. She reports she has no pain at all and is very happy Personal History Occupation: DISABLED Red flag PMH: BMI BMI Counceling provided: Yes Pain Pain level (0-10): 0 Pain duration: COMES AND GOES Pain location: groin Pain quality: sharp, dull and aching Pain timing: increases with activity Associated signs & symptoms: none Ambulatory data Ambulatory device: none Treatments Improvement with previous injections: No Improvement with PT: Yes Improvement with NSAIDS: no Review of Systems Review of Systems: All systems negative unless otherwise noted in HPI.
[2025-01-22 08:41] VITALS: BP 142/79; PULSE 59; RESP 19; TEMP 36.2; O2SAT 94; BMI 37.8
== END 2025-01-22 09:00 | disposition home or self-care (01) ==
PROVIDERS: PCP Family Medicine; Referring Provider Family Medicine; Supervising Provider Orthopaedic Surgery Adult Reconstructive Orthopaedic Surgery; Visit Provider Orthopaedic Surgery Adult Reconstructive Orthopaedic Surgery
DX: Z47.1 Aftercare following joint replacement surgery (principal); Z96.641 Presence of right artificial hip joint; M25.551 Pain in right hip; M46.87 Other specified inflammatory spondylopathies, lumbosacral region
CPT/HCPCS: 99213; G0463

== ENCOUNTER 2025-01-30 06:35 | Day surgery (SDC) | payer MEDICARE, SELFPAY ==
[2025-01-29 11:03] VITALS: BMI 34.7
[2025-01-30] VITALS (10 sets, daily range): BP systolic 148–180; BP diastolic 73–99; PULSE 54–66; RESP 12–19; TEMP 36.6; O2SAT 95–100; BMI 34.7
[2025-01-30] MEDS: MIDAZOLAM INJ 1 MG/ML VIAL 2 ML (ASD USE ONLY) 2 MG IVP (07:43)
[2025-01-30] MEDS: SODIUM CHLORIDE 0.9% 500 ML 500 ML 100 ML IV (07:43)
[2025-01-30] MEDS: fentaNYL CIT INJ 50 mCg/ML AMP 2ML (ASD USE ONLY) IVP (07:43)
[2025-01-30] MEDS: SIMETHICONE 40 MG/0.6 ML ORAL SYRINGE PO (07:48)
--- NOTE | 2025-01-30 08:34 | SUR.PHASEII ---
0831 Pt more awake and alert. Via hourly sign language interpreter-pt denies pain or N/V. Abd remains soft. Pt passing flatus. No bleeding seen. Cici Po fluids.
== END 2025-01-30 08:41 | disposition home or self-care (01) ==
PROVIDERS: PCP Family Medicine; Referring Provider Surgery; Visit Provider Surgery
PROC: 0DBE8ZX Excision of Large Intestine, Via Natural or Artificial Opening Endoscopic, Diagnostic (ICD-10-PCS; CPT 45380; principal; 2025-01-30 07:30)
DX: Z12.11 Encounter for screening for malignant neoplasm of colon (principal); K62.89 Other specified diseases of anus and rectum; K64.1 Second degree hemorrhoids; K57.30 Diverticulosis of large intestine without perforation or abscess without bleeding; Z12.12 Encounter for screening for malignant neoplasm of rectum
CPT/HCPCS: G0121; A4649; J1200; J2250; J3010; J7999; A9270

== ENCOUNTER → 2025-02-03 | Outpatient (CLI) | payer MEDICARE, SELFPAY ==
--- NOTE | 2025-02-03 13:30 | XR_ITS ---
Examination: Diagnostic digital mammography, bilateral Computer aided detection 3-D breast Tomosynthesis, bilateral Date and time of exam: 02/03/2025, 1:20 p.m. Comparisons: October 2020 through May 2022 Indications: Probably benign right breast abnormality seen on prior exam Technique: Nonmagnified MLO, CC views of the breasts to been obtained, reconstructed from 3-D Tomosynthesis images. R2 computer aided detection program utilized for evaluation of suspicious masses and/or abnormal calcifications. 3-D Tomosynthesis images obtained. Findings: There are scattered areas of fibroglandular density. No evidence of suspicious masses or suspicious calcifications. Stable benign-appearing 1 cm mass medial right breast. Impression: BI-RADS category 1: Negative findings (within normal) Recommend 1 year follow-up mammogram
--- NOTE | 2025-02-03 13:30 | XR_ITS ---
Examination: Bone densitometry Date and time of exam: February 03, 2025, 1342 hours INDICATIONS: Menopause age 55, personal history osteopenia Technique: Lumbar spine and hip total bone mineralization values of an calculated. Peak reference and age match control results have been displayed. Findings: Lumbar spine total bone mineralization is 0.807 gm/cm2. This is 2.2 standard deviations below peak reference. This is 0.2 standard deviations above age-matched controls. Hip total bone mineralization is 0.820 gm/cm2 This is 1.1 standard deviations below peak reference. This is 0.7 standard deviations above age-matched controls Impression: There is osteopenia based on lumbar spine measurements. There is osteopenia based on hip measurements Lumbar mineralization is decreased 7.1% compared with December 07, 2021 Hip mineralization is decreased 3.5% compared with December 07, 2021
== END | disposition home or self-care (01) ==
LOC: CDIM 13:06
PROVIDERS: Referring Provider Family Medicine; Visit Provider Family Medicine
DX: R92.313 Mammographic fatty tissue density, bilateral breasts (principal); M85.89 Other specified disorders of bone density and structure, multiple sites
CPT/HCPCS: 77062; 77066; 77080; G0279